=== PATIENT | male | born 1955 | race Caucasian/White ===

== ENCOUNTER 2017-12-12 09:37 | Emergency (ER) | payer OTHER ==
[~2017-12-12] VITALS: Ht 180.3 cm; Wt 99.8 kg
--- NOTE | ~2017-12-12 | EKG ---
[address] [address] ELECTROCARDIOGRAM REPORT Name: ERONGA Johnson [id number] Admission: 12/12/17 Attend Phys: Discharge: Date of : 55 Report #: [id number] THIS REPORT FOR: //name// [facility] ED Test Date: 2017-12-12 Test Time: 10:43:10 Pat Name: GA LITTLEJOHN Department: Room: Gender: Director Payment: : 1955 Requested By: Samanta Crowe Order Number: [id number] MD: Tay Carrillo Measurements Intervals [place] Rate: 54 P: 24 DC: 160 QRS: 2 QRSD: 95 T: 23 QT: 455 QTc: 432 Interpretive Statements Sinus rhythm Compared to ECG 04/01/2013 06:51:28 Sinus bradycardia no longer present Electronically Signed On 12-12-2017 11:07:38 CDT by Tay Carrillo [email or web address] <ELECTRONICALLY SIGNED> By: Tay Carrillo MD 12/12/17 1107 1043 1043 Tay Carrillo MD /EPI
--- NOTE | ~2017-12-12 | EKG ---
[address] [address] ELECTROCARDIOGRAM REPORT Name: GA LITTLEJOHN [id number] Admission: 12/12/17 Attend Phys: Discharge: Date of : 55 Report #: [id number] THIS REPORT FOR: //name// [facility] ED Test Date: 2017-12-12 Test Time: 09:49:46 Pat Name: GA LITTLEJOHN Department: Room: Gender: [employer]: JOE : 1955 Requested By: Samanta Crowe Order Number: [id number] MD: Tay Carrillo Measurements Intervals [place] Rate: 54 P: 26 [place]: 161 QRS: -4 QRSD: 92 T: 17 QT: 441 QTc: 418 Interpretive Statements Sinus rhythm Compared to ECG 04/01/2013 06:51:28 Sinus bradycardia no longer present Electronically Signed On 12-12-2017 11:07:35 CDT by Tay Carrillo [email or web address] <ELECTRONICALLY SIGNED> By: Tay Carrillo MD 12/12/17 1107 0949 0949 Tay Carrillo MD /EPI
[~2017-12-12 09:37] MED LIST: MULTI VITAMIN1 EACH PO
[2017-12-12 10:05] LABS: ABSOLUTE NEUTROPHILS 6.7 thou/uL (1.4-8.2); BASOPHILS 0.6 % (0.0-2.0); EOSINOPHILS 2.6 % (0.0-3.0); HEMATOCRIT 46.6 % (42.0-52.0); HEMOGLOBIN 16.2 gm/dL (14.0-18.0); LYMPHOCYTES 16.5 % (24.0-44.0); MCH 30.6 pg (26.0-34.0); MCHC 34.8 g/dL (28.0-37.0); MONOCYTES 7.5 % (1.0-8.0); PLATELET COUNT 209 thou/uL (150-400); POLYS 72.8 % (36.0-66.0); RBC 5.29 mil/uL (4.50-6.00); RDW 12.9 % (10.5-14.5); WBC 9.2 thou/uL (4.0-11.0)
[2017-12-12 10:18] LABS: ANION GAP 8 mmol/L (7-16); BUN 13 mg/dL (7-18); CALCIUM 9.5 mg/dL (8.5-10.1); CHLORIDE 102 mmol/L (98-107); CO2 28 mmol/L (21-32); CREATININE 1.1 mg/dL (0.7-1.3); GLUCOSE 101 mg/dL (74-106); POTASSIUM 4.3 mmol/L (3.5-5.1); SODIUM 138 mmol/L (136-145)
[2017-12-12 10:25] LABS: ALBUMIN 3.8 g/dL (3.4-5.0); SGOT 41 U/L (15-37); SGPT 77 U/L (30-65); TOTAL BILIRUBIN 0.5 mg/dL (<0.1-1.0); TOTAL PROTEIN 7.7 g/dL (6.4-8.2); TROPONIN-I <0.06 ng/mL (<0.06)
[2017-12-12] MEDS ORDERED: CYCLOBENZAPRINE5 MG PO (12:54)
[2017-12-12 13:04] VITALS: BP 123/70
== END 2017-12-12 13:05 | disposition home or self-care (01) ==
LOC: ER 09:37
PROVIDERS: Student in an Organized Health Care Education/Training Program
DX: R07.89 Other chest pain (principal); M19.019 Primary osteoarthritis, unspecified shoulder; E78.00 Pure hypercholesterolemia, unspecified; Z87.442 Personal history of urinary calculi

== ENCOUNTER → 2019-09-30 | Outpatient (CLI) | payer OTHER ==
[~2019-09-30] MED LIST changes: +CYCLOBENZAPRINE5 MG PO
== END ==
LOC: CAT 13:55
PROVIDERS: ATTEND Internal Medicine Cardiovascular Disease
DX: Z13.6 Encounter for screening for cardiovascular disorders (principal); E78.00 Pure hypercholesterolemia, unspecified; I25.10 Atherosclerotic heart disease of native coronary artery without angina pectoris

== ENCOUNTER → 2019-10-13 | Outpatient (CLI) | payer OTHER | LOC: SJCVCIMAG 09:07 | PROVIDERS: ATTEND Internal Medicine Cardiovascular Disease | DX: I35.1 Nonrheumatic aortic (valve) insufficiency (principal); R68.84 Jaw pain; R53.83 Other fatigue; Z82.49 Family history of ischemic heart disease and other diseases of the circulatory system ==

== ENCOUNTER → 2020-04-10 | Outpatient (CLI) | payer OTHER, MEDICARE | LOC: SJCVC 12:58 | PROVIDERS: ATTEND Internal Medicine Cardiovascular Disease | DX: R93.1 Abnormal findings on diagnostic imaging of heart and coronary circulation (principal); I10 Essential (primary) hypertension; E78.00 Pure hypercholesterolemia, unspecified; R09.89 Other specified symptoms and signs involving the circulatory and respiratory systems; G47.33 Obstructive sleep apnea (adult) (pediatric); E78.5 Hyperlipidemia, unspecified; Z87.442 Personal history of urinary calculi; Z79.899 Other long term (current) drug therapy ==